=== PATIENT | female | born 1975 | race Two or more races ===

== ENCOUNTER 2017-08-26 06:23 | Day surgery (SDC) | payer OTHER ==
[~2017-08-26 06:23] MED LIST: ADCIRCA PO; ALDACTONE25 MG PO; CARDIZEM LA240 MG PO; LETAIRIS10 MG PO; PROTONIX40 MG PO
[2017-08-26] MEDS ORDERED: CIPRO500 MG PO (09:09)
[2017-08-26] MEDS ORDERED: ADVIL200 MG PO (09:09)
== END 2017-08-26 11:25 | disposition home or self-care (01) ==
LOC: CIR.AMB 06:23
DX: N92.0 Excessive and frequent menstruation with regular cycle (principal); N84.0 Polyp of corpus uteri

== ENCOUNTER → 2019-04-27 | Outpatient (CLI) | payer OTHER ==
[~2019-04-27] MED LIST changes: +ADVIL200 MG PO; +CIPRO500 MG PO
== END | disposition home or self-care (01) ==
LOC: RAD 13:41
DX: J11.1 Influenza due to unidentified influenza virus with other respiratory manifestations (principal); R05 Cough